=== PATIENT | female | born 1955 ===

== ENCOUNTER 2023-04-19 15:17 | Outpatient (AMB) | payer BC, SELFPAY ==
--- NOTE | 2023-04-19 15:19 | HO.NEPHOV ---
HPI HPI Comments History of Present Illness Details I had the delight of seeing Daphne in consultation for nephrolithiasis and renal cysts. She has longstanding history of renal calculi, microscopic hematuria as well as urinary infection and has been followed up closely by Dr. Alvarez. She had a CT scan the abdomen recently which showed enlarged laminated staghorn calculus in the left renal pelvis extending into the upper and mid pole calyces. There was soft tissue edema surrounding the calculus in the renal pelvis. There were other scattered small calculi as well. There was her low attenuating exophytic lesion in the midpole measuring approximately 3 cm in diameter which is probably a cyst. There was also a small non obstructing calculus and along mid pole right kidney there was a renal cyst as well. There was no retroperitoneal lymphadenopathy. Her urine cytology was negative for malignant cells in the past. Urine cultures in the recent past showed Klebsiella and Proteus. She has been taking methenamine as well as trospium. She continues to have incontinence problem. She had received Botox in the past. She also mentioned that she failed oxybutynin and Vesicare. Klebsiella and Proteus were grown in 2021, E coli in 2020 as well as 2019 and in 2018 she had Citrobacter. She had cystoscopy in the past which did not show any bladder tumors. She has sleep apnea and a CPAP machine which she does not use. She has been hypertensive and take care losartan as well as amlodipine. She has history of extensive urological studies including catheterization for estimation of residual urine, complex cystometrogram, complex uroflow, cystourethroscopy, with injection for chemo denervation of bladder. Her incontinence was determined to be mixed in origin. She was wondering whether she should surgically remove her staghorn calculus. She does not take any nonsteroidal anti-inflammatories. She is anxious to maintain good hydration as she has incontinence. Her renal functions are normal. [facility] Medical History (Updated 04/26/23 @ 09:17 by Eddie Zelaya MD) Vitamin D deficiency, unspecified SARA (obstructive sleep apnea) Morbid (severe) obesity due to excess calories Type 2 diabetes mellitus with unspecified complications Chronic pain syndrome Essential (primary) hypertension Surgical History (Updated 04/19/23 @ 15:31 by Mallory Godinez MA) H/O eye surgery History of carpal tunnel release H/O removal of cyst Family History Mother Diabetes Maternal Grandmother Liver cancer Maternal Aunt Breast cancer Social History (Updated 04/19/23 @ 15:32 by Mallory Godinez MA) Alcohol intake: never Patient Tobacco Use Status: Current someday Tobacco user Vital Signs 04/19/23 15:24 Height 5 ft 1.5 in Weight 215 lb 4 oz BMI 40.0 BP 158/80 H Blood Pressure Location Lt brachial Position Sitting Pulse 96 Pulse Source Pulse Oximeter Pulse Oximetry (%) 95 Oxygen Delivery Method Room Air Physical Exam Vital Signs: Last Vital Signs Pulse 96 04/19/23 15:24 BP 158/80 H 04/19/23 15:24 Pulse Ox 95 04/19/23 15:24 Oxygen Delivery Method Room Air 04/19/23 15:24 BMI result Body Mass Index 40.0 Const General: comfortable and no acute distress Orientation/consciousness: patient oriented x3 HEENT Head: Yes normocephalic Mouth: Normal oral and palatal mucosa present Eyes EOM: EOMs intact bilaterally Neck Neck: Yes supple Resp Auscultation: clear to auscultation bilaterally Cardio Jugular venous distension: no JVD Rate: regular rate GI Palpation (GI): Soft to palpation Auscultation: normal bowel sounds General: Yes no CVA tenderness Back/Spine/Pelvis Back: no CVA tenderness Skin General skin exam: no rashes or lesions noted Neuro General: patient oriented x3 and moves all extremities Extrem General: Yes no pedal edema Assessment & Plan Assessment & Plan (1) Staghorn calculus: Code(s): N20.0 - Calculus of kidney (2) Renal cyst: Code(s): N28.1 - Cyst of kidney, acquired (3) Hypertension: Code(s): I10 - Essential (primary) hypertension Qualifiers: Hypertension type: primary hypertension Qualified Code(s): I10 - Essential (primary) hypertension Plan Daphne has staghorn calculus. She has been getting recurrent urinary infections. Her staghorn calculus need to be surgically removed. She is going to follow-up with Dr. Alvarez. She has no history of renal cyst infection, bleeding in the cyst or cyst rupture. She has no family history of any ESRD or renal transplantation. She has urinary incontinence which is also closely followed up and managed by her urologist. Her blood pressure is currently at goal. Her renal functions are quite stable. Once her staghorn calculus issues are resolved I plan to do a 24 urine collection. I did not make any medication changes today. I addressed all the above conditions, its management strategies and follow-up. Answered all questions. Follow-up given. Orders: Orders Creatinine 04/19/23 N20.0 - Calculus of kidney Blood Urea Nitrogen 04/19/23 N20.0 - Calculus of kidney Electrolytes 04/19/23 N20.0 - Calculus of kidney Coding Level of Care Code New Pt Level 4 (12717) Diagnoses Staghorn calculus N20.0 Renal cyst N28.1 Primary hypertension I10 Hypertension type: primary hypertension Results Reviewed Nephrology Results: No Data to Display
[2023-04-19 15:24] VITALS: BP 158/80; PULSE 96; O2SAT 95; BMI 40.0
== END 2023-04-19 16:34 | disposition home or self-care (01) ==
PROVIDERS: PCP Internal Medicine; Visit Provider Internal Medicine Nephrology
DX: N20.0 Calculus of kidney (principal); N28.1 Cyst of kidney, acquired; I10 Essential (primary) hypertension
CPT/HCPCS: 99204

== ENCOUNTER → 2023-04-19 15:17 | Outpatient (BNVA) | payer BC, MEDICARE, SELFPAY | PROVIDERS: PCP Internal Medicine; Visit Provider Internal Medicine Nephrology ==